=== PATIENT | female | born 1995 | race Two or more races ===

== ENCOUNTER 2021-09-30 05:18 | Inpatient (IN) | payer OTHER ==
[2021-09-30] VITALS (44 sets, daily range): BP systolic 81–118; BP diastolic 48–73
[~2021-09-30] VITALS: Ht 157.5 cm; Wt 58.1 kg
[2021-09-30] MEDS ORDERED: PRENTAB9 PO (05:46)
[2021-09-30] MEDS ORDERED: TUMS500C PO (05:46)
[2021-09-30] MEDS ORDERED: HOME MED LIST COMPLETE! XX SCH (05:50)
[2021-09-30] MEDS ORDERED: LACTATED RINGER'S 1000 ML IV STA (06:37)
[2021-09-30] MEDS ORDERED: TRANEXAMIC ACID INJection 1,000 MG in NS 100 ML IV PRN (06:40)
[2021-09-30] MEDS ORDERED: METHYLERGONOVINE MALEATE 0.2 MG/ML VIAL (J2210) IM PRN (06:40)
[2021-09-30] MEDS ORDERED: OXYTOCIN DRIP 30 UNITS in IV 1 EA IV PRN (06:40)
[2021-09-30] MEDS ORDERED: LIDOCAINE 1% MDV 20ML VIAL INFIL PRN (06:40)
[2021-09-30 07:00] LABS: HEMATOCRIT 36.9 % (36.0-47.0); HEMOGLOBIN 13.1 g/dl (12.0-15.5); MEAN CORPUSCULAR HEMOGLOBIN 34.5 pg (27.0-33.0); MEAN CORPUSCULAR HGB CONC 35.5 g/dl (32.0-36.5); MEAN CORPUSCULAR VOLUME 97.1 fl (80.0-96.0); PLATELET COUNT, AUTOMATED 191 10^3/uL (150-450); WHITE BLOOD COUNT 10.5 10^3/uL (4.0-10.0)
[2021-09-30] MEDS: LR 1,000 ML IV SCH ×2 (07:54→11:20)
[2021-09-30] MEDS ORDERED: LR 500 ML IV PRN (08:20)
[2021-09-30] MEDS ORDERED: diphenhydrAMINE 50MG/ML VIAL (J1200) IV PRN (08:20)
[2021-09-30] MEDS ORDERED: NALOXONE INJ 0.4MG/1ML VIAL (J2310 PER 1MG) IV PRN (08:20)
[2021-09-30] MEDS ORDERED: ONDANSETRON 4MG/2ML VIAL IV PRN (08:20)
[2021-09-30] MEDS ORDERED: EPIDURAL/PCA KEYS XX PRN (08:20)
[2021-09-30] MEDS ORDERED: FENTANYL/ROPIVACAINE/NACL BAG 100 ML EPIDURAL SCH (08:20)
[2021-09-30] MEDS ORDERED: FENTANYL 2MCG/ML ROPIVACAINE 0.2% IN 0.9% NACL 100ML IVBAG As Ordered ONE (08:24)
[2021-09-30] MEDS: PRENATAL VITAMINS CHEWABLE TABLET PO SCH (09:00)
[2021-09-30] MEDS ORDERED: LR 1,000 ML IV SCH (10:20)
[2021-09-30] MEDS: OXYTOCIN DRIP 30 UNITS in IV 1 EA IV SCH ×2 (10:30→19:17)
[2021-09-30] MEDS: ePHEDrine SULFATE 25 MG/5 ML(5MG/ML) SYRINGE IVP PRN ×3 (11:07→11:28)
[2021-09-30] MEDS ORDERED: MEASLES,MUMPS,RUBELLA VACCINE INJ (MMR-II) (90707) SC SCH (14:15)
[2021-09-30] MEDS ORDERED: DIBUCAINE 1% OINTMENT 30GM TOP PRN (14:15)
[2021-09-30] MEDS ORDERED: RHOGAM 300 MCG (1500 IU) INJ (J2790) IM SCH (14:15)
[2021-09-30] MEDS: IBUPROFEN 800 MG TAB PO PRN ×2 (18:20→23:32)
[2021-09-30] MEDS: DOCUSATE SODIUM 100MG CAPSULE PO PRN (19:56)
[2021-09-30] MEDS: ACETAMINOPHEN TAB 650MG DOSE (2X325MG) PO PRN (20:01)
[2021-10-01] MEDS: ACETAMINOPHEN TAB 650MG DOSE (2X325MG) PO PRN (05:51)
[2021-10-01 06:04] VITALS: BP 93/50
[2021-10-01 09:24] VITALS: BP 93/50
[2021-10-01] MEDS: PRENATAL VITAMINS CHEWABLE TABLET PO SCH (09:29)
[2021-10-01 15:04] VITALS: BP 93/50
[2021-10-01 18:00] VITALS: BP 91/51
[2021-10-01] MEDS: IBUPROFEN 800 MG TAB PO PRN (19:51)
[2021-10-02] MEDS: DOCUSATE SODIUM 100MG CAPSULE PO PRN (01:10)
[2021-10-02] MEDS: ACETAMINOPHEN TAB 650MG DOSE (2X325MG) PO PRN (01:15)
[2021-10-02 05:45] VITALS: BP 98/52
[2021-10-02] MEDS ORDERED: PRENCHW PO (08:04)
[2021-10-02] MEDS ORDERED: COLA100C5 PO (08:04)
[2021-10-02] MEDS: PRENATAL VITAMINS CHEWABLE TABLET PO SCH (08:12)
[2021-10-02] MEDS: IBUPROFEN 800 MG TAB PO PRN (08:12)
== END 2021-10-02 13:00 | disposition home or self-care (01) | DRG 807 ==
LOC: M LDO 05:18 → M LDI 06:02 → M OBS 18:31
PROVIDERS: ADMIT Obstetrics & Gynecology; ATTEND Registered Nurse
PROC: 10E0XZZ Delivery of Products of Conception, External Approach (ICD-10-PCS; principal; 2021-09-30)
DX: O80 Encounter for full-term uncomplicated delivery (principal); Z37.0 Single live birth; Z3A.40 40 weeks gestation of pregnancy